=== PATIENT | female | born 2000 | race Two or more races ===

== ENCOUNTER 2025-03-23 23:07 | Emergency (ER) | payer BC ==
[~2025-03-23] VITALS: Ht 165.1 cm; Wt 81.6 kg
[2025-03-24] MEDS ORDERED: DIPHTH,PERTUSS(ACELL),TET VAC 0.5 ML SYRINGE IM STA (01:27)
[2025-03-24] MEDS ORDERED: CEFTRIAXONE SODIUM 1,000 MG VIAL IM STA (01:28)
[2025-03-24] MEDS ORDERED: AMOX-CLAV 875-1 EAC1 PO (01:52)
[2025-03-24] MEDS ORDERED: CENTANY30 GM TOP ×2 (01:52→01:56)
[2025-03-24] MEDS ORDERED: KETO10TA2 PO ×2 (01:53→01:56)
== END 2025-03-24 02:26 ==
LOC: ER 23:08
DX: S60.470A Other superficial bite of right index finger, initial encounter (principal); W54.0XXA Bitten by dog, initial encounter; Y93.89 Activity, other specified; Y92.89 Other specified places as the place of occurrence of the external cause
CPT/HCPCS: 90471; 90714; J1670